=== PATIENT | male | born 1960 | race Caucasian/White ===

== ENCOUNTER 2023-08-21 05:09 | Emergency (ER) | payer SELFPAY ==
[2023-08-21 05:27] VITALS: BP 131/85; PULSE 86; RESP 20; TEMP 97.8; BMI 20.5
== END 2023-08-21 06:19 | disposition left against medical advice (07) ==
LOC: JER 05:09
DX: Z53.21 Procedure and treatment not carried out due to patient leaving prior to being seen by health care provider (principal)
CPT/HCPCS: 99281-25